=== PATIENT | female | born 1985 | race Hispanic/Latino ===

== ENCOUNTER → 2019-12-26 | Outpatient (CLI) | payer BC | LOC: US 13:51 | PROVIDERS: ATTEND Internal Medicine Gastroenterology | DX: R10.10 Upper abdominal pain, unspecified (principal) | CPT/HCPCS: 76700 ==

== ENCOUNTER → 2020-02-10 | Day surgery (SDC) | payer BC ==
[~2020-02-10] MED LIST: PROPOFOL IV EMULSION 10 MG/ML 20 ML VIAL ONE
[2020-02-10 13:00] VITALS: BP 108/64
--- NOTE | 2020-02-10 13:27 | Operative Report ---
DATE OF PROCEDURE: 02/10/2020 SURGEON: Rick Colorado MD PROCEDURE: EGD with biopsies. INDICATIONS FOR EGD: Upper abdominal pain, bloating, nausea, and vomiting. MEDICATIONS: The patient was done under MAC, please see anesthesiologist's note. PROCEDURE IN DETAIL: With the patient in left lateral decubitus position, a flexible fiberoptic Olympus gastroscope was introduced into the esophagus under direct visualization without any difficulty. There was some patchy erythema noted in distal esophagus. The scope was then advanced with ease into the stomach, mucosa overlying the antrum and the body revealed some patchy intense erythema and moderate edema; and biopsies were obtained and sent to stain for H. pylori. Minute ulcer proximal body was noted with the heaped up margins and that was biopsied. Pylorus was of normal contour and shape, it was intubated with ease and the scope was advanced all the way to the second portion of the duodenum. The scope was then withdrawn slowly. Mucosa overlying the proximal second portion, appeared to be within normal limits. Biopsies were obtained to rule out sprue. Minute ulcers were noted in the duodenal bulb without active bleeding or stigmata of recent hemorrhage. The scope was then withdrawn back into the stomach and retroflexed, mucosa overlying the fundus and cardia appeared to be within normal limits. The scope was then straightened out, it was subsequently withdrawn. The patient tolerated the procedure well. IMPRESSION: 1. Distal esophagitis. 2. Gastritis, biopsied, biopsies sent to stain for H. pylori. 3. Gastric ulcer, proximal body, minute with heaped up margins, biopsied. 4. Duodenal bulb ulcers, minute, without active bleeding or stigmata of recent hemorrhage. 5. Rule out sprue. PLAN: 1. Follow up histology. 2. Initiate Protonix 40 mg one p.o. q.a.m. a.c. Rick Colorado MD [facility] [place] /[id number] cc: Karthikeyan Means DO
== END | disposition home or self-care (01) ==
LOC: OR 10:45
PROVIDERS: ATTEND Internal Medicine Gastroenterology
DX: K29.70 Gastritis, unspecified, without bleeding (principal); K25.9 Gastric ulcer, unspecified as acute or chronic, without hemorrhage or perforation; K29.80 Duodenitis without bleeding; B96.81 Helicobacter pylori [H. pylori] as the cause of diseases classified elsewhere; K26.9 Duodenal ulcer, unspecified as acute or chronic, without hemorrhage or perforation; K20.90 Esophagitis, unspecified without bleeding; F41.9 Anxiety disorder, unspecified; Z01.812 Encounter for preprocedural laboratory examination; Z20.828 Contact with and (suspected) exposure to other viral communicable diseases
CPT/HCPCS: 43239; 81025; J2704; U0002; 43235